=== PATIENT | male | born 1970 | race Caucasian/White ===

== ENCOUNTER 2017-03-13 17:08 | Inpatient (IN) | payer MEDICAID, OTHER ==
[~2017-03-13] VITALS: Ht 180.3 cm; Wt 108.4 kg
[2017-03-13 17:21] VITALS: BP 170/112
--- NOTE | 2017-03-13 17:26 | NUR ---
PT AMBULATED TO BED 7 AT THIS TIME.
--- NOTE | 2017-03-13 17:30 | NUR ---
46M BIB SELF C/O SUICIDAL IDEATION; PT STATES " I'V BEEN HAVING THOUGHTS OF SUICIDE FOR SOME TIME NOW. I'VE LOST EVERYTHING"; PT DENIES IDEAS OF HURTING SELF AT THIS TIME. PT A&OX4, PERRL; STATES " I WANT TO GO TO ANOTHER COUNTRY WHERE THEY WILL LET ME KILL MYSELF, LIKE [place]. I FEEL LIKE I HAVE THE RIGHT TO KILL MYSELF IN THE COUN[place] I RESIDE IN"; BL LUNG SOUNDS, RR EVEN/UNLABORED, SKIN IS WARM/DRY AT THIS TIME; PT NOTED W/ CLOSED, RED SCRATCH ANTONIO TO LEFT FOOT; STATES " MY FOOT IS IN THERE ALL DAY, IT GETS MOIST, SO I SCRATCHED IT"; [place] [employer] CALLED; PT DENIES ANY PAIN, N/V/D AT THIS TIME; STEADY GAIT; PT PLACED ON MONITOR, RESTING IN BED W/ HOB ELEVATED AND IN LOWEST POSITION; POSITIONED FOR COMFORT; ER MD MADE AWARE OF STATUS. WILL CONTINUE TO MONITOR.
--- NOTE | 2017-03-13 17:41 | NUR ---
ER MD DR. SUAREZ EVALUATING PT AT BEDSIDE.
--- NOTE | 2017-03-13 18:05 | NUR ---
NO IV INSERTION NEEDED AT THIS TIME PER ER MD DR. SUAREZ.
--- NOTE | 2017-03-13 18:06 | NUR ---
PT REFUSES OXYGEN; STATES " I'M BREATHING FINE"; O2 SAT 97% ON ROOM AIR AT THIS TIME.
[2017-03-13 18:09] LABS: BASOPHILS # (AUTO) 0.1 K/uL (0.00-0.22); BASOPHILS % (AUTO) 1.2 % (0.0-2.0); EOSINOPHILS # (AUTO) 0.1 K/uL (0-0.4); EOSINOPHILS % (AUTO) 1.2 % (0.0-4.0); HEMOGLOBIN 15.3 g/dL (12.0-18.0); LYMPHOCYTES # (AUTO) 2.6 K/uL (2.0-11.5); LYMPHOCYTES % (AUTO) 20.7 % (20.5-51.1); MEAN CORPUSCULAR HEMOGLOBIN 27 pg (27-31); MEAN CORPUSCULAR HGB CONC 33 g/dL (33-37); MEAN CORPUSCULAR VOLUME 84 fL (80-94); NEUTROPHILS # (AUTO) 8.6 K/uL (1.8-7.7); NEUTROPHILS % (AUTO) 68.9 % (42.2-75.2); PLATELET COUNT (AUTO) 315 K/uL (140-450); RED BLOOD CELL COUNT(AUTO) 5.61 MIL/uL (4.20-6.10); WHITE BLOOD COUNT (AUTO) 12.4 K/uL (4.8-10.8)
--- NOTE | 2017-03-13 18:14 | NUR ---
[place] [employer] EVALUATING PT AT BEDSIDE AT THIS TIME.
[2017-03-13 18:19] LABS: ANION GAP 12.2 (8-16); CARBON DIOXIDE 27.7 mmol/L (21-32); CHLORIDE 107 mmol/L (98-107); CREATININE 1.2 mg/dL (0.6-1.3); GFR ARICAN-AMERICAN 83 mL/min (>90); GFR NON ARICAN-AMERICAN 69 mL/min (>90); GLUCOSE 118 mg/dL (74-106); POTASSIUM 3.9 mmol/L (3.5-5.1); SODIUM SERUM 143 mmol/L (136-145); UREA NITROGEN, BLOOD 16 mg/dL (7-18)
[2017-03-13 18:25] LABS: ALANINE AMINOTRANSFERASE 44 U/L (12-78); ALBUMIN 3.9 g/dL (3.4-5.0); ALCOHOL, BLOOD < 3 mg/dL (<3); ALKALINE PHOSPHATASE 85 U/L (46-116); ASPARTATE AMINOTRANSFERASE 25 U/L (15-37); CREATINE KINASE, TOTAL 389 U/L (39-308); SALICYLATE 3.2 mg/dL (2.8-20.0); TOTAL BILIRUBIN 0.2 mg/dL (0.0-1.0); TOTAL PROTEIN, SERUM 7.3 g/dL (6.4-8.2)
[2017-03-13 18:26] LABS: ACETAMINOPHEN < 0.5 ug/ml (10-30)
--- NOTE | 2017-03-13 18:46 | NUR ---
PT PLACED ON 5150 HOLD FOR SUICIDAL IDEATION BY KINSEY HAMLIN; SUICIDAL PRECAUTIONS INITIATED AT THIS TIME.
--- NOTE | 2017-03-13 19:08 | NUR ---
Pt report given to NIKOLE CHAN. Transfer of care at this time.
--- NOTE | 2017-03-13 19:10 | NUR ---
RECEIVED REPORT FROM MILADY AGUSTIN. ASSUMED PT CARE.
[2017-03-13 21:43] LABS: APPEARANCE,URINE CLEAR (CLEAR); BILIRUBIN,URINE NEGATIVE (NEGATIVE); BLOOD, URINE NEGATIVE (NEGATIVE); COLOR,URINE YELLOW (YELLOW); LEUKOCYTE ESTERASE ,URINE NEGATIVE (NEGATIVE); NITRITE, URINE NEGATIVE (NEGATIVE); PH,URINE 5.5 (5.0-9.0); PROTEIN,URINE NEGATIVE (NEGATIVE); UGLUCOSE NEGATIVE (NEGATIVE); UROBILINOGEN,URINE 0.2 EU/dL (0.2 - 1)
[2017-03-13 21:47] LABS: RBC,URINE 0-3 /HPF (0-5); WBC,URINE 0-3 /HPF (0-5)
[2017-03-13 21:48] LABS: BACTERIA,URINE RARE /HPF (None Seen); MUCUS,URINE 3+ /LPF (None Seen); SQUAMOUS EPITHELIAL CELL,UR None Seen /LPF (0-3 (FEW))
[2017-03-13 21:50] LABS: AMPHETAMINE, URINE NEG. ng/ml (NEG <=1000); BARBITURATE, URINE NEG. ng/ml (NEG <=200); BENZODIAZEPINE, URINE NEG. ng/mL (NEG <=200); CANNABINOID, URINE POS. ng/mL (NEG <=50); COCAINE, URINE NEG. ng/mL (NEG <=300); OPIATE, URINE NEG. ng/mL (NEG <=2000); PHENCYCLIDINE SCREEN,URINE NEG. ng/mL (NEG <=25)
[2017-03-13] MEDS ORDERED: MORPHINE SULFATE 2 MG/ML SYR IVP PRN (22:25)
[2017-03-13] MEDS ORDERED: ZOLPIDEM 5 MG TAB PO PRN (22:25)
[2017-03-13] MEDS ORDERED: ONDANSETRON 4 MG/2 ML VIAL IVP PRN (22:25)
--- NOTE | 2017-03-13 22:58 | NUR ---
Patient will be admitted to care of DR JIANG. Admited to ICU. Will go to BED 2. Belongings list completed. Report to EUGENIA AGUSTIN.
--- NOTE | 2017-03-13 23:05 | NUR ---
PATIENT ADMITTED FROM ED FOR 5150 SUICIDAL IDEATION, PLACED TO ICU2, MONITOR SHOWS SR, ON ROOM AIR, RESPIRATIONS NORMAL, SKIN INTACT, IV SITE LEFT HAND G#20 PATENT AND INTACT. PATIENT STILL VERBALIZING SUICIDAL IDEATION, STATED "I WANT TO , MY LIFE IS HORRIBLE, I WANT [place]". DENIES PAIN, NO DISTRESS NOTED.
[2017-03-13 23:12] VITALS: BP 135/83
--- NOTE | 2017-03-13 23:30 | NUR ---
PT IS ASKING WHERE HIS CLOTHS, CALLED ER TALK WITH ARMINDA VAZQUEZ , SHE TOLD CLOTHS WITH SECURITY, CALLED SECURITY HE TOLD NO CLOTHS ONLY PEN, NAIL CUTTING, CALLED BACK TO ER TALK WITH CHARGE NURSE HILARY , HE TOLD HE WILL LOOKING
[2017-03-13] MEDS: NACL 0.9% 1,000 ML IV SCH (23:41)
[2017-03-14] VITALS: BP 125/76
--- NOTE | 2017-03-14 00:20 | NUR ---
CALLED BACK TO ER AGAIN, ARMINDA SHE TOLD SHE DID NOT KNOW WHERE PT CLOTHS, SHE CALLED SECURITY FOR LOOKING FOR PT CLOTHS TOO
[2017-03-14 00:28] LABS: INR 1.1 (0.8-1.2); PARTIAL THROMBOPLASTIN TIME 25.4 secs (22-35.6); PROTHROMBIN TIME 10.5 secs (10.8-13.4)
--- NOTE | 2017-03-14 00:35 | NUR ---
PATIENT ABLE TO TURN SELF IN BED, HAD SOME SNACKS AND GETTING READY TO GO TO SLEEP, DENIES PAIN, WILL MONITOR CLOSELY.
[2017-03-14 02:26] LABS: AMYLASE 74 U/L (25-115); LIPASE 289 U/L (73-393)
[2017-03-14 02:38] LABS: FREE T4 (FREE THYROXINE) 1.64 ng/dL (0.76-1.46)
[2017-03-14 02:39] LABS: THYROID STIMULATING HORMONE 1.86 uIU/mL (0.34-3.76)
--- NOTE | 2017-03-14 03:37 | NUR ---
SLEEPING COMFORTABLY, CONTINUE TO MONITOR CLOSELY.
[2017-03-14 04:00] VITALS: BP 122/71
--- NOTE | 2017-03-14 04:05 | NUR ---
SECURITY BROUGHT IN PATIENT'S CLOTHINGS AND BACKPACK TO ICU FROM ED.
[2017-03-14] MEDS: HYDROcodone/APAP 5/325 MG 1 TAB TAB PO PRN ×3 (04:40→18:41)
--- NOTE | 2017-03-14 04:52 | NUR ---
NORCO 1 TAB PO GIVEN FOR COMPLAIN OF TOOTHACHE AT 0440. NO VERBALIZATION OF SUICIDAL IDEATION, PATIENT WENT BACK TO SLEEP.
--- NOTE | 2017-03-14 06:20 | NUR ---
PATIENT SLEEPING COMFORTABLY, NO ACUTE DISTRESS.
[2017-03-14 06:25] LABS: BASOPHILS # (AUTO) 0.1 K/uL (0.00-0.22); BASOPHILS % (AUTO) 0.8 % (0.0-2.0); EOSINOPHILS # (AUTO) 0.3 K/uL (0-0.4); EOSINOPHILS % (AUTO) 3.6 % (0.0-4.0); HEMATOCRIT 41.6 % (36-52); LYMPHOCYTES # (AUTO) 2.9 K/uL (2.0-11.5); MEAN CORPUSCULAR HEMOGLOBIN 28 pg (27-31); MEAN CORPUSCULAR HGB CONC 34 g/dL (33-37); MEAN CORPUSCULAR VOLUME 84 fL (80-94); MONOCYTES % (AUTO) 10.6 % (1.7-9.3); NEUTROPHILS # (AUTO) 4.7 K/uL (1.8-7.7); PLATELET COUNT (AUTO) 232 K/uL (140-450); RED BLOOD CELL COUNT(AUTO) 4.94 MIL/uL (4.20-6.10); RED CELL DISTRIBUTION WIDTH 13.2 % (11.6-13.7)
[2017-03-14 06:28] LABS: CALCIUM 8.5 mg/dL (8.5-10.1); CARBON DIOXIDE 31.2 mmol/L (21-32); POTASSIUM 4.2 mmol/L (3.5-5.1)
[2017-03-14 06:31] LABS: MAGNESIUM 1.9 mg/dL (1.8-2.4); PHOSPHORUS 3.4 mg/dL (2.5-4.9)
[2017-03-14] MEDS: NACL 0.9% 1,000 ML IV SCH (06:48)
--- NOTE | 2017-03-14 07:30 | NUR ---
RECEIVED REPORT FROM EUGENIA AGUSTIN PT AWAKE AND ALERT WELL ORIENTED , ON ROOM AIR IV FLUID ON LEFT HAND #20 infusing ns at 120ml/hr the site is dry and intact skin DRY WARM TO TOUCH . PT IS CALM AND COOPERATE AT THE TIME DENIED PAIN.
--- NOTE | 2017-03-14 07:53 | NUR ---
PATIENT HAS BEEN SCREENED AND CATEGORIZED LOW NUTRITION RISK. PATIENT WILL BE SEEN WITHIN 7 DAYS OF ADMISSION. 03/20/[address]
[2017-03-14 08:00] VITALS: BP 132/76
--- NOTE | 2017-03-14 08:15 | NUR ---
SEEN BY DR GUILLORY AND THE RESIDENT BY COVERSATION PT. STATE THAT HE WANTED TO KENA BY INJECT HEROINE INTO IV.AND PAST AWAY QUIETLY,. HE LIKE IT TO HAPPEN IN HOSPITAL BECAUSE IT CLEAN. HE ALSO MENTION THAT HE STILL VERY MUSH DEPRESS AT THE TIME.
--- NOTE | 2017-03-14 11:00 | NUR ---
OOB TO BED SIDE COMMODE VOIDED 600 ML AND HAD MODERATE AMOUNT OF FORM BM.
--- NOTE | 2017-03-14 11:27 | NUR ---
SS NOTE: PER NURSING CLERK ERICK, ALTHOUGH PT HAS DENITA[facility]OPTIMA, PT'S MEDI-DENITA IS THROUGH [facility]. SENT PSYCH PLACEMENT INQUIRIES TO: - [facility] - [facility] - [facility] - [facility]
[2017-03-14 12:00] VITALS: BP 123/71
--- NOTE | 2017-03-14 12:00 | NUR ---
LUNCH TOOK ABOUT 80% FROM HIS DEYANIRA. COOPERATIVE DENIED PAIN.
--- NOTE | 2017-03-14 12:12 | NUR ---
NOTE INITIAL REVIEW FAXED TO [facility] / FAX# [phone] Addendum: 03/14/17 at 1216 by Dane Gatica RN ATTN: STANLEY #[phone], [facility] FAX# [phone]
[2017-03-14] MEDS ORDERED: PROBIOTIC SCREEN 1 EA MISC MC PRN (13:35)
--- NOTE | 2017-03-14 14:05 | NUR ---
C/O TOOTH ACH 10/10 MEDICATION GIVEN ORDERED.
--- NOTE | 2017-03-14 15:00 | NUR ---
PT ASLEEP V/S WITH IN NORMAL LIMIT.
--- NOTE | 2017-03-14 15:52 | NUR ---
SEEN BY DR. ULLOA THE PSYCHOLOGIST PT. STILL MEET 5150 DUE TO SUICIDAL AND HOMICIDAL IDEATION WILL NEED TO TRANSFER TO PSYCHIATRIC FACILITY. DR DASILVA NOTIFIED.
[2017-03-14 16:00] VITALS: BP 123/70
--- NOTE | 2017-03-14 18:00 | NUR ---
DINNER TOOK 85% C/ TOOTHACHES
--- NOTE | 2017-03-14 19:00 | NUR ---
CALL TELE REPORT GIVE TO [employer]
--- NOTE | 2017-03-14 19:28 | NUR ---
RECEIVED TRANSFER PATIENT FROM ICU AT 1920 PM VIA WHEELCHAIR TO MED/SURG UNIT. INITIAL ASSESSMENT AND BODY CHECK DONE. PATIENT AAO X 4, ABLE TO FOLLOW COMMAND AND MAKE NEEDS KNOWN AND AMBULATORY BY SELF WITH STEADY GAIT. NO S/S OF DISTRESS OR SOB NOTED UPON TRANSFERRING. SKIN WARM/DRY TO TOUCH WITH NORMAL COLOR AND SKIN ALL INTACT. PATIENT STILL C/O TOOTHACHE AT THIS TIME AND ASKED FOR FOOD/SNACKS. INSTRUCTED PATIENT TO ROOM/ENVIRONMENT. ALSO, DISCUSSED PLAN OF CARE, PAIN MANAGEMENT AND MEDICATION REGIMEN WITH PATIENT AND PATIENT VERBALIZED UNDERSTANDING. PLACED PATIENT ON SAFETY/SUICIDAL IDEATION PRECAUTIONS. WILL CONTINUE 1:1 SITTER WITH CLOSE OBSERVATION.
[2017-03-14 20:00] VITALS: BP 119/62
--- NOTE | 2017-03-14 21:26 | NUR ---
ADMINISTERED PAIN MEDICATION FOR C/O TOOTHACHE AND GAVE ONE PAIR OF SANDWICH/JUICE PER REQUESTED. PATIENT COMPLYING WITH MEDICATION AND CARE. BEHAVIOR UNDER CONTROL. VSS. KEPT PATIENT IN COMFORTABLE POSITION/WARM AND WILL CONTINUE TO MONITOR. SITTER REMAINS AT BEDSIDE.
[2017-03-15] VITALS: BP 114/61
--- NOTE | 2017-03-15 01:30 | NUR ---
PATIENT CURRENTLY SLEEPING QUIETLY IN BED WITH EVEN AND UNLABORED RESPIRATORY RATE. NO BEHAVIOR PROBLEM NOTED. WILL CONTINUE TO MONITOR AND SITTER AT BEDSIDE.
[2017-03-15] MEDS: NACL 0.9% 1,000 ML IV SCH (03:38)
--- NOTE | 2017-03-15 04:09 | NUR ---
PATIENT IS CLINICALLY STABLE AND NO S/S OF DISTRESS NOTED. WILL CONTINUE TO MONITOR. SITTER REMAINS AT BEDSIDE.
--- NOTE | 2017-03-15 07:25 | NUR ---
PATIENT RESTED WELL THROUGHOUT THE SHIFT AND REMAINED IN STABLE CONDITION WITHOUT APPARENT DISTRESS NOTED. ENDORSED PLAN OF CARE TO NIKOLE LY, AT BEDSIDE. SITTER REMAINS AT BEDSIDE.
--- NOTE | 2017-03-15 07:30 | NUR ---
RECEIVED REPORT FROM NIGHT NURSE. PT RESTING COMFORTABLY IN BED. AOX4, ABLE TO VERBALIZE NEEDS. IV SITE ASYMPTOMATIC, PATENT AND INTACT. REVIEWED AND DISCUSSED PLAN OF CARE WITH PT, PT VERBALIZES UNDERSTANDING. NO S/S OF ACUTE DISTRESS. PT VERBALIZES SUICIDAL IDEATION WITH A PLAN, STATES THAT "I JUMP OUT OF THE TRAIN'S WAY AT THE LAST MINUTE." 1:1 SITTER AT BEDSIDE WITH CLOSE MONITORING, SUICIDE PRECAUTIONS AND SAFETY MEASURES ENSURED. CALL LIGHT WITHIN REACH.
[2017-03-15 08:00] VITALS: BP 134/58
[2017-03-15 08:20] LABS: T4 (THYROXINE) 7.7 ug/dL (4.5-12.0)
--- NOTE | 2017-03-15 08:34 | NUR ---
SS NOTE: SENT PSYCH PLACEMENT INQUIRIES TO: - [facility] - [facility] - [facility] - [facility]
--- NOTE | 2017-03-15 10:00 | NUR ---
PT SMOKING CIGARETTES IN BATHROOM. SECURITY NOTIFIED. BELONGINGS CHECKED, SECURITY CONFISCATED PERSONAL BELONGINGS. PT SHOWERED AND RETURNED SAFELY TO ROOM. 1:1 SITTER WITH CLOSE MONITORING AT BEDSIDE. SAFETY MEASURES ENSURED.
[2017-03-15] MEDS: HYDROcodone/APAP 5/325 MG 1 TAB TAB PO PRN ×3 (11:17→21:59)
--- NOTE | 2017-03-15 11:17 | NUR ---
PT C/O PAIN. SEE PAIN ASSESSMENT. MEDICATED ORDERED. PT TOLERATED WELL. EDUCATED PT TO REPOSITION AND WATCH TV FOR DISTRACTION. 1:1 SITTER AT BEDSIDE WITH CLOSE MONITORING. SUICIDE PRECAUTIONS AND SAFETY MEASURES ENSURED. CALL LIGHT WITHIN REACH. WILL CONTINUE TO MONITOR.
--- NOTE | 2017-03-15 13:27 | NUR ---
FAXED CONCURRENT REVIEW TO [facility]ITA [facility]K [phone] PHONE MELINDA [phone] TRACKING NUMBER [id number]
--- NOTE | 2017-03-15 14:21 | NUR ---
CM NOTE: PSYCH PLACEMENT FOLLOW UP: PER GUS FROM [facility] (TEL NO. [phone]), THEY WILL ACCEPT PT BUT STILL WAITING FOR AVAILABLE BED. SHE SAID THEY WILL HAVE A DISCHARGE THIS AFTERNOON AND SHE WILL JUST CALL US WHEN THERE'S AVAILABLE BED. PER SOFIE [facility], THEY STILL NEED TO REVIEW PT'S NFO. PER MARTIN FROM [facility], THEY CAN'T ACCEPT THE PATIENT FOR NOW. PER KEVIN FROM [facility], NO BEDS AVAILABLE. PER PAM FROM [facility], NO BEDS AVAILABLE.
[2017-03-15] MEDS ORDERED: ESCI10TA PO (15:50)
[2017-03-15 16:00] VITALS: BP 118/78
--- NOTE | 2017-03-15 19:30 | NUR ---
CONDITION STABLE, ENDORSED PLAN OF CARE TO AUTOMOBILE TAILLIGHT ASSEMBLER.
--- NOTE | 2017-03-15 19:30 | NUR ---
RECEIVED REPORT FROM MOON AGUSTIN AT BEDSIDE. PT IS ALERT AWAKE ORIENTED X4. INITIAL ASSESSMENT DONE. NO S/S OF RESPIRATORY DISTRESS OR SOB NOTED. NO C/O PAIN OR ANY DISCOMFORT AT THIS TIME. PT IS ON 1:1 CLOSED MONITORING D/T SUICIDAL IDEATION. PT STATES THAT HE HAS NO LONGER PLAN TO HURT HIMSELF AT THIS TIME. READY TO BE TRANSFERRED TO [facility] [place] BUT STILL WAITING FOR THEM TO CALL US BACK FOR AVAILABLE BED. PLAN OF CARE REVIEWED TO PT AND VERBALIZED UNDERSTANDING. CALL LIGHT WITHIN REACH. WILL CONTINUE TO MONITOR
--- NOTE | 2017-03-15 19:30 | NUR ---
AM SHIFT NURSE ALIYAH RN SAID THAT PT HAS NO IV ACCESS BECAUSE HE IS REFUSING IT DESPITE OF EXPLAINING THE RISKS AND BENEFITS OF IT. DR. JIANG MADE AWARE. WILL CONTINUE TO MONITOR.
--- NOTE | 2017-03-15 21:50 | NUR ---
KINSEY HAMLIN CAME BECAUSE PT CALLED THEM AND SAID THAT HE WANTS TO TALK TO A TRACK WATCHMAN. KINSEY HAMLIN TOLD ME THAT PT TOLD THEM THAT HE SO DEPRESSED RIGHT NOW AND HAS PLAN TO HURT HIMSELF. WILL CONTINUE TO MONITOR. STILL ON 1:1 CLOSED MONITORING.
[2017-03-16] VITALS: BP 124/75
--- NOTE | 2017-03-16 00:10 | NUR ---
PT IS SLEEPING RIGHT NOW BUT EASILY AROUSABLE. NO S/S OF ANY DISCOMFORT AT THIS TIME. ALL NEEDS ARE ATTENDED. CALL LIGHT WITHIN REACH. WILL CONTINUE TO MONITOR.
[2017-03-16] MEDS: NACL 0.9% 1,000 ML IV SCH (04:24)
--- NOTE | 2017-03-16 05:15 | NUR ---
AM CARE RENDERED. BED LINEN CHANGED. INSTRUCTED PT TO REPOSITION. KEPT CLEAN AND DRY. CALL LIGHT WITHIN REACH. WILL CONTINUE TO MONITOR.
--- NOTE | 2017-03-16 07:22 | NUR ---
PT HAS NO S/S OF ANY DISCOMFORT. PLAN OF CARE ENDORSE TO ALIYAH AGUSTIN & MOON AGUSTIN AT BEDSIDE FOR CONTINUITY OF CARE.
--- NOTE | 2017-03-16 07:30 | NUR ---
RECEIVED REPORT FROM NIGHT NURSE. PT RESTING COMFORTABLY IN BED. AOX4, ABLE TO VERBALIZE NEEDS. PT REFUSED IV SITE. REVIEWED AND DISCUSSED PLAN OF CARE WITH PT, PT VERBALIZES UNDERSTANDING. NO S/S OF ACUTE DISTRESS. PT VERBALIZES SUICIDAL IDEATION WITH A PLAN. FLIGHT OF IDEAS NOTED. 1:1 SITTER AT BEDSIDE WITH CLOSE MONITORING, SUICIDE PRECAUTIONS AND SAFETY MEASURES ENSURED. CALL LIGHT WITHIN REACH.
[2017-03-16 08:00] VITALS: BP 120/72
[2017-03-16] MEDS ORDERED: ESCITALOPRAM 20 MG TAB PO SCH (09:00)
--- NOTE | 2017-03-16 09:20 | NUR ---
MEDICATIONS ADMINISTERED WITH EDUCATION. PT VERBALIZES UNDERSTANDING. PT TOLERATED WELL. 1:1 SITTER WITH CLOSE OBSERVATION MAINTAINED. SAFETY AND SUICIDE PRECAUTIONS ENSURED. WILL CONTINUE TO MONITOR.
[2017-03-16] MEDS ORDERED: NICOTINE TRANSD SYS 14 MG/24 HR PATCH TD PRN (11:05)
--- NOTE | 2017-03-16 14:31 | NUR ---
CALLED [facility] PER DANIEL THERE IS NO BED AVAILABLE .THEY WILL CALL WHEN BED AVAILABLE
--- NOTE | 2017-03-16 14:48 | NUR ---
RECEIVED CALL FROM [facility] ,THERE IS BED AVAILABLE , PATIENT CAN GO TO [place] UNIT [address] IS [address] BEATTY TO GIVE REPORT [phone]
--- NOTE | 2017-03-16 15:00 | NUR ---
SPOKE WITH KELSEY FROM [facility], ARRANGED TRANSPORTATION TO [facility], ALARM SIGNALER TIME 1630. GUN STOCKER AND ALIYAH RN MADE AWARE.
[2017-03-16 15:16] VITALS: BP 120/72
[2017-03-16 16:00] VITALS: BP 115/64
--- NOTE | 2017-03-16 18:00 | NUR ---
PT REEVALUATED BY DR VALVERDE, 5150 HOLD RENEWED. [facility] TRANSPORTATION ARRANGED FOR KITCHEN WORK SUPERVISOR. PT REMAINS STABLE.
--- NOTE | 2017-03-16 19:20 | NUR ---
DC'D PT TO [facility] VIA [facility] IN STABLE CONDITION.
== END 2017-03-16 19:15 | disposition designated cancer center or children's hospital (05) | DRG 199 ==
LOC: MED 17:08 → MIC 22:21 → MTU 03-14 19:06
PROVIDERS: ADMIT Family Medicine; ATTEND Family Medicine
DX: I16.0 Hypertensive urgency (principal); R45.851 Suicidal ideations; F33.2 Major depressive disorder, recurrent severe without psychotic features; R45.850 Homicidal ideations; E66.9 Obesity, unspecified; F12.90 Cannabis use, unspecified, uncomplicated; F17.210 Nicotine dependence, cigarettes, uncomplicated; F41.0 Panic disorder [episodic paroxysmal anxiety]; Z68.33 Body mass index [BMI] 33.0-33.9, adult; Z59.0 Homelessness; Z71.51 Drug abuse counseling and surveillance of drug abuser
CPT/HCPCS: 36415; 71010; 80048; 80053; 80305; 81001; 82150; 82550; 82553; 83036; 83690; 83735; 84100; 84436; 84439; 84443; 84479; 84484; 85025; 85610; 85730; 87081; 93005; 99285; G0480; G0482; J2270; J7030; Q0092

== ENCOUNTER 2017-10-20 11:26 | Inpatient (IN) | payer MEDICAID, OTHER ==
[~2017-10-20] VITALS: Ht 177.8 cm; Wt 99.8 kg
[~2017-10-20 11:26] MED LIST: ESCI10TA PO
[2017-10-20 11:28] VITALS: BP 154/96
--- NOTE | 2017-10-20 11:32 | NUR ---
Patient ambulated to bed 6. RN evaluating patient at bedside.
--- NOTE | 2017-10-20 11:33 | NUR ---
PT PRESENTS TO ER FOR EVALUATION OF SUICIDAL IDEATION. PT STATES HE WANTS TO HURT HIMSELF AND OTHER, DENIES HAVING A PLAN. HX DEPRESSION. DENIES N/V/D; SKIN IS PINK/WARM/DRY; AAOX4 WITH EVEN AND STEADY GAIT; LUNGS CLEAR BL; PATIENT STATES PAIN OF 0/10 AT THIS TIME; PATIENT POSITIONED FOR COMFORT; HOB ELEVATED; BEDRAILS UP X2; BED DOWN. ER MD MADE AWARE OF PT STATUS.
--- NOTE | 2017-10-20 11:36 | NUR ---
KINSEY Peña NOTIFIED OF PT STATUS AND WILL SEND OFFICER TO INTERVIEW PT.
--- NOTE | 2017-10-20 12:06 | NUR ---
Dr. Matos evaluating patient at bedside.
[2017-10-20 12:49] LABS: BASOPHILS # (AUTO) 0.2 K/uL (0.00-0.22); BASOPHILS % (AUTO) 2.7 % (0.0-2.0); EOSINOPHILS # (AUTO) 0.1 K/uL (0-0.4); EOSINOPHILS % (AUTO) 1.1 % (0.0-4.0); HEMATOCRIT 45.4 % (36-52); LYMPHOCYTES # (AUTO) 1.9 K/uL (2.0-11.5); LYMPHOCYTES % (AUTO) 21.3 % (20.5-51.1); MEAN CORPUSCULAR HEMOGLOBIN 28 pg (27-31); MEAN CORPUSCULAR HGB CONC 33 g/dL (33-37); MEAN CORPUSCULAR VOLUME 86 fL (80-94); MONOCYTES # (AUTO) 0.7 K/uL (0.8-1.0); MONOCYTES % (AUTO) 7.7 % (1.7-9.3); NEUTROPHILS # (AUTO) 6.2 K/uL (1.8-7.7); NEUTROPHILS % (AUTO) 67.2 % (42.2-75.2); PLATELET COUNT (AUTO) 266 K/uL (140-450); RED BLOOD CELL COUNT(AUTO) 5.28 MIL/uL (4.20-6.10); RED CELL DISTRIBUTION WIDTH 12.9 % (11.6-13.7); WHITE BLOOD COUNT (AUTO) 9.1 K/uL (4.8-10.8)
--- NOTE | 2017-10-20 13:11 | NUR ---
KINSEY Peña AT BEDSIDE.
[2017-10-20 13:14] LABS: ANION GAP 10.3 (8-16); CARBON DIOXIDE 31.8 mmol/L (21-32); CHLORIDE 105 mmol/L (98-107); CREATININE 1.1 mg/dL (0.7-1.3); GFR ARICAN-AMERICAN 92 mL/min (>90); GLUCOSE 126 mg/dL (74-106); POTASSIUM 4.1 mmol/L (3.5-5.1); SODIUM SERUM 143 mmol/L (136-145); UREA NITROGEN, BLOOD 12 mg/dL (7-18)
[2017-10-20 13:20] LABS: ALBUMIN 3.6 g/dL (3.4-5.0); ASPARTATE AMINOTRANSFERASE 20 U/L (15-37); SALICYLATE 4.3 mg/dL (2.8-20.0); TOTAL BILIRUBIN 0.3 mg/dL (0.0-1.0)
[2017-10-20 13:25] LABS: ACETAMINOPHEN < 0.5 ug/ml (10-30)
[2017-10-20 13:37] LABS: APPEARANCE,URINE CLEAR (CLEAR); BILIRUBIN,URINE NEGATIVE (NEGATIVE); BLOOD, URINE NEGATIVE (NEGATIVE); LEUKOCYTE ESTERASE ,URINE NEGATIVE (NEGATIVE); NITRITE, URINE NEGATIVE (NEGATIVE); UGLUCOSE NEGATIVE (NEGATIVE)
--- NOTE | 2017-10-20 13:42 | NUR ---
Patient appears to be resting comfortably in bed. BP 138/78,DENIES HEADACHE OR DIZZINESS AT THIS TIMR. Respirations even and unlabored.WILL CONTINUE TO MONITOR. Addendum: 10/20/17 at 1504 by [facility] PT STATED " I DON'T WANT TO HURT MYSELF OR ANYONE NOW. I WANT TO KNOW WHERE WILL YOU TRANSFER ME ".
[2017-10-20 13:48] LABS: BARBITURATE, URINE NEG. ng/ml (NEG <=200); BENZODIAZEPINE, URINE NEG. ng/mL (NEG <=200); CANNABINOID, URINE NEG. ng/mL (NEG <=50); COCAINE, URINE NEG. ng/mL (NEG <=300); OPIATE, URINE NEG. ng/mL (NEG <=2000); PHENCYCLIDINE SCREEN,URINE NEG. ng/mL (NEG <=25)
[2017-10-20 13:50] LABS: COLOR,URINE YELLOW (YELLOW)
[2017-10-20] MEDS ORDERED: LIDOCAINE 2% 1000 MG/50 ML VIAL INJ ONE (15:00)
--- NOTE | 2017-10-20 15:00 | NUR ---
PT ATE 50% OF FOOD .
[2017-10-20] MEDS ORDERED: ONDANSETRON 4 MG/2 ML VIAL IVP PRN (16:20)
[2017-10-20] MEDS ORDERED: ACETAMINOPHEN 325 MG TAB PO PRN (16:20)
--- NOTE | 2017-10-20 16:49 | NUR ---
Dr. Andrea evaluating patient at bedside.
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
--- NOTE | 2017-10-20 17:02 | NUR ---
GAVE REPORT NIKOLE HODGES.Patient will be admitted to care of DR MARSH. Admited to . Will go to room 124B. Belongings list completed. Report to NIKOLE SHANNON.
[2017-10-20] MEDS ORDERED: NICOTINE TRANSD SYS 21 MG/24 HR PATCH TD SCH (17:10)
[2017-10-20] MEDS ORDERED: ESCITALOPRAM 20 MG TAB PO SCH (17:10)
--- NOTE | 2017-10-20 17:10 | NUR ---
RECEIVED PT FROM ER ASSISTED BY ER NURSE. AWAKE. ALERT ORIENTEDX4. NO SOB NOTED. DENIES ANY PAIN OR DISCOMFORT AT THIS TIME. NO PLANS FOR SUICIDAL NOTED AT THIS TIME. PT AMBULATORY. SAFETY PRECAUTION IN PLACE. MAINTAINED ON , ONE ON ONE SITTER. SAFETY PRECAUTION IN PLACE. CALL LIGHT WITHIN REACH.
[2017-10-20 17:11] LABS: CHOL/HDL RATIO 5.9 (1-4.5); FREE T4 (FREE THYROXINE) 1.39 ng/dL (0.76-1.46); PHOSPHORUS 2.3 mg/dL (2.5-4.9); THYROID STIMULATING HORMONE 1.22 uIU/mL (0.34-3.74)
[2017-10-20 17:15] LABS: PROTHROMBIN TIME 9.9 secs (10.8-13.4)
[2017-10-20 17:24] VITALS: BP 127/72
[2017-10-20] MEDS: NACL 0.9% 1,000 ML IV SCH (18:12)
--- NOTE | 2017-10-20 18:12 | NUR ---
LEXAPRO 10 MG PER 1/2 TAB AND NICOTINE PATCH SCHEDULED AT 1710 ORDERED UPON ADMISSION TO [facility] WAS GIVEN 1811. USED DOSE SCHEDULED FOR TOMORROW AM IN [place]. WILL ENDORSE TO LINER ROLL CHANGER TO LET AM SHIFT KNOW.
--- NOTE | 2017-10-20 18:26 | NUR ---
PT VERBALIZED HE STILL THINKS OF KILLING HIMSELF BUT WITH NO PLAN. HE VERBALIZED THAT HE WANTED TO BE EUTHANIZED TO JUST END ALL OF HIS PROBLEMS. HE VERBALIZED HE HAS FAMILY IN [place] BUT DOESN'T WANT TO CONTACT THEM. PT MAINTAINED ON . MAINTAINED ON SAFETY PRECAUTION.
--- NOTE | 2017-10-20 19:23 | NUR ---
PT KEPT CLEAN, DRY AND COMFORTABLE, NEEDS ATTENDED. ENDORSED TO NEXT SHIFT, PT ON STABLE CONDITION. FOR CONTINUITY OF CARE.
--- NOTE | 2017-10-20 19:25 | NUR ---
RECD. RESTING IN BED, AWAKE, A/OX4. RESPIRATION EVEN AND UNLABORED. IV OF NS AT 50 ML/HR INFUSING, RIGHT AC G20. DR. QUINTANA HAD INTERVIEWED PATIENT. STATED STILL WITH THOUGHTS OF HARMING SELF. PLAN OF CARE FOR THE SHIFT DISCUSSED. VERBALIZED UNDERSTANDING. DENIES PAIN 0/10. ASSUMED ROLE OF 1:1 SITTER, WILL CONTINUE TO MONITOR PATIENT AND ENSURE SAFETY.
--- NOTE | 2017-10-20 19:40 | NUR ---
DR. NIELSEN RECOMMEND PATIENT TO BE DISCHARGED ONCE MEDICALLY CLEARED TO IN-PSYCHE FACILITY.
--- NOTE | 2017-10-20 19:49 | NUR ---
Patient's Plan of Care was discussed and reviewed with SALES REPRESENTATIVE GIRLS' APPAREL: ONEL.
[2017-10-20 20:00] VITALS: BP 117/68
--- NOTE | 2017-10-20 20:30 | NUR ---
WENT TO BR TO VOID, BACK TO BED AFTER VOIDING, SAFETY MAINTAINED.
[2017-10-20] MEDS: DOCUSATE SODIUM 100 MG GELCAP PO SCH (20:45)
--- NOTE | 2017-10-20 20:45 | NUR ---
SLEEPING COMFORTABLY IN BED.
[2017-10-20] MEDS: risperiDONE 1 MG TAB PO SCH (20:46)
[2017-10-21] VITALS: BP 119/70
--- NOTE | 2017-10-21 | NUR ---
STILL SLEEPING COMFORTABLY, SNORING.
--- NOTE | 2017-10-21 01:15 | NUR ---
WOKE UP FOR A SHORT TIME AND WENT BACK TO SLEEP AGAIN.
--- NOTE | 2017-10-21 03:30 | NUR ---
AMBULATED TO BR TO VOID. BACK TO BED AFTER VOIDING. SAFETY MAINTAINED.
[2017-10-21 04:00] VITALS: BP 135/77
--- NOTE | 2017-10-21 04:30 | NUR ---
WANTS TO OPEN THE TV. EXPLAINED THAT PATIENTS UNDER 5150 ARE NOT ALLOWED TO WATCH TV, IT MAY TRIGGER SUICIDAL THOUGHTS. COOPERATIVE. DID NOT COMMENT ON THIS, SEEMS TO UNDERSTAND EXPLANATION.
--- NOTE | 2017-10-21 05:56 | NUR ---
REFUSED BLOOD DRAW FOR AM LABS.
--- NOTE | 2017-10-21 06:00 | NUR ---
RESTING IN BED, QUIET. NEW SITTER NEAR BEDSIDE MONITORING PATIENT.
--- NOTE | 2017-10-21 06:57 | NUR ---
CONDITION REMAIN STABLE. SAFETY MAINTAINED DURING SHIFT. NO SUICIDAL IDEATION NOTED. WILL ENDORSED TO AM NURSE FOR CONTINUITY OF CARE.
--- NOTE | 2017-10-21 07:30 | NUR ---
RECEIVED REPORT FROM COLOR ROOM ATTENDANT NURSE. PATIENT IN STABLE CONDITION. PATIENT LYING IN BED SLEEPING. AROUSABLE BY VOICE. NO DISTRESS NOTED. RESPIRATIONS EVEN, UNLABORED, ON ROOM AIR. DENIES ANY PAIN AT THIS TIME. AAOX4, CALM, COOPERATIVE, SKIN COLOR APPROPRIATE TO ETHNICITY, WARM TO TOUCH. DENIES ANY THOUGHTS OF HARMING SELF OR OTHERS AT THIS TIME. HOWEVER, PATIENT BELIEVES THAT HE "SHOULD BY EUTHANIZATION HE DOESN'T DESERVE THE PAIN OF ." DENIES ANY HALLUCINATIONS. SKIN IS INTACT. IV SITE IS INTACT, PATENT, IVF INFUSING PER ORDERS. ABDOMEN SOFT, NON-TENDER, NON-DISTENDED. REVIEWED PLAN OF CARE WITH PATIENT. PATIENT VERBALIZED UNDERSTANDING. SAFETY MEASURES IN PLACE, 1:1 SITTER AT BEDSIDE. WILL CONTINUE TO MONITOR.
[2017-10-21 08:00] VITALS: BP 111/70
--- NOTE | 2017-10-21 09:46 | NUR ---
CM NOTE CLINICAL INFORMATION FAXED TO [facility] / FAX# [phone], C: [phone]
[2017-10-21] MEDS: DOCUSATE SODIUM 100 MG GELCAP PO SCH ×2 (09:54→20:54)
[2017-10-21] MEDS: risperiDONE 1 MG TAB PO SCH ×2 (09:55→20:55)
--- NOTE | 2017-10-21 09:57 | NUR ---
PATIENT LYING IN BED SLEEPING. NO DISTRESS NOTED. AROUSABLE BY VOICE. RESPIRATIONS EVEN, UNLABORED, ON ROOM AIR. MEDICATIONS DUE GIVEN. SAFETY MEASURES IN PLACE, CALL LIGHT WITHIN REACH. WILL CONTINUE TO MONITOR.
[2017-10-21] MEDS ORDERED: ESCITALOPRAM 20 MG TAB PO SCH (11:00)
[2017-10-21] MEDS: NACL 0.9% 1,000 ML IV SCH (12:20)
--- NOTE | 2017-10-21 13:12 | NUR ---
PATIENT HAS BEEN SCREENED AND CATEGORIZED LOW NUTRITION RISK. PATIENT WILL BE SEEN WITHIN 7 DAYS OF ADMISSION. 10/27/[address]
--- NOTE | 2017-10-21 15:25 | NUR ---
PATIENT LYING IN BED SLEEPING. AROUSABLE BY VOICE. RESPIRATIONS EVEN, UNLABORED ON ROOM AIR. NO DISTRESS NOTED. CONDITION UNCHANGED. WILL CONTINUE TO MONITOR.
[2017-10-21 16:00] VITALS: BP 125/70
[2017-10-21] MEDS: NICOTINE TRANSD SYS 21 MG/24 HR PATCH TD SCH (17:03)
--- NOTE | 2017-10-21 17:06 | NUR ---
PATIENT LYING IN BED COMFORTABLY, FEELS BORED. NO DISTRESS NOTED. DENIES ANY PAIN. CONDITION UNCHANGED. CONTINUES TO BELIEVE THAT HE SHOULD BE EUTHANIZED, BUT HAS NO PLANS TO CARRY IT OUT PER PATIENT REPORTS. OLD NICOTINE TRANSDERMAL PATCH REMOVED, AND NEW ONE PLACED PER ORDERS. SAFETY MEASURES IN PLACE, 1:1 SITTER IN ROOM. WILL CONTINUE TO MONITOR.
[2017-10-21] MEDS ORDERED: SODIUM PHOS / POTASSIUM PHOS 1 PKT PDR PO SCH (18:30)
--- NOTE | 2017-10-21 18:40 | NUR ---
PATIENT LYING IN BED SLEEPING. AROUSABLE BY VOICE. NO DISTRESS NOTED. CONDITION UNCHANGED. MEDICATION DUE GIVEN. SAFETY MEASURES IN PLACE, 1:1 SITTER AT BEDSIDE. WILL CONTINUE TO MONITOR.
--- NOTE | 2017-10-21 19:03 | NUR ---
GAVE REPORT TO CUSTOMS OFFICER NURSE FOR CONTINUITY OF CARE. PATIENT IN STABLE CONDITION.
--- NOTE | 2017-10-21 19:04 | NUR ---
RECD. RESTING IN BED, ASLEEP BUT EASILY WAKES UP WHEN NAME CALLED. RESPIRATION EVEN AND UNLABORED. IV OF NS AT 50 ML/HR INFUSING, RIGHT AC G20. PLAN OF CARE FOR THE SHIFT DISCUSSED. VERBALIZED UNDERSTANDING. DENIES PAIN 0/10. ASSUMED THE ROLE OF NURSE, 1:1 SITTER. WILL CONTINUE TO MONITOR PATIENT BEHAVIOR AND ENSURE SAFETY AT ALL TIMES.
[2017-10-21 19:57] VITALS: BP 100/59
--- NOTE | 2017-10-21 20:55 | NUR ---
DUE PO MEDICATIONS GIVEN. STATED STILL WITH THOUGHTS OF HARMING SELF. WENT BACK TO SLEEP AFTER TAKING MEDS.
--- NOTE | 2017-10-21 22:00 | NUR ---
Patient's Plan of Care was discussed and reviewed with MAINTENANCE MECHANIC TECHNICIAN: MICHAEL KERN
[2017-10-22] VITALS: BP 126/68
--- NOTE | 2017-10-22 00:59 | NUR ---
SLEEPING COMFORTABLY IN BED, SNORING.
--- NOTE | 2017-10-22 01:45 | NUR ---
WOKE UP, WENT BR TO VOID. BACK TO BED AFTER VOIDING.
--- NOTE | 2017-10-22 02:00 | NUR ---
SLEEPING COMFORTABLY. OCCASIONALLY TURN TO SIDES.
--- NOTE | 2017-10-22 05:55 | NUR ---
REFUSED AM BLOOD DRAW.
--- NOTE | 2017-10-22 06:00 | NUR ---
RESIDENT CAME AND SPOKE WITH PATIENT, STATED HE HAS STILL THOUGHTS OF HURTING HIMSELF.SAFETY MAINTAINED DURING SHIFT. NEW SITTER MONITORING PATIENT NEAR BEDSIDE.
[2017-10-22] MEDS: NACL 0.9% 1,000 ML IV SCH ×2 (06:56→08:20)
--- NOTE | 2017-10-22 07:15 | NUR ---
RECEIVED REPORT FROM CLINICAL INTERVIEWER NURSE. PATIENT IN STABLE CONDITION. PATIENT LYING IN BED SLEEPING. AROUSABLE BY VOICE. NO DISTRESS NOTED. RESPIRATIONS EVEN, UNLABORED, ON ROOM AIR. DENIES ANY PAIN AT THIS TIME. AAOX4, CALM, COOPERATIVE, SKIN COLOR APPROPRIATE TO ETHNICITY, WARM TO TOUCH. HAS THOUGHTS OF HARMING SELF HE BELIEVES THAT HE SHOULD . NO PLAN OF HARMING SELF AT THIS TIME HE DOES NOT KNOW HOW TO "DO IT WITHOUT SURVIVING." DENIES ANY HALLUCINATIONS. SKIN IS INTACT. IV SITE IS INTACT, PATENT, IVF INFUSING PER ORDERS. ABDOMEN SOFT, NON-TENDER, NON-DISTENDED. LUNGS CTA ON ALL LOBES. REVIEWED PLAN OF CARE WITH PATIENT. PATIENT VERBALIZED UNDERSTANDING. SAFETY MEASURES IN PLACE, 1:1 SITTER AT BEDSIDE. WILL CONTINUE TO MONITOR.
[2017-10-22 08:00] VITALS: BP 133/85
--- NOTE | 2017-10-22 08:11 | NUR ---
PATIENT REFUSED AM LABS. WILL CONTINUE TO MONITOR.
--- NOTE | 2017-10-22 09:30 | NUR ---
PATIENT LYING IN BED SLEEPING. AROUSABLE BY VOICE. NO DISTRESS NOTED. DENIES ANY PAIN. CONDITION UNCHANGED. CONTINUES TO FEEL THAT HE SHOULD . MEDICATIONS DUE GIVEN. SAFETY MEASURES IN PLACE, 1:1 SITTER AT BEDSIDE. WILL CONTINUE TO MONITOR.
[2017-10-22] MEDS: risperiDONE 1 MG TAB PO SCH ×2 (09:51→20:46)
[2017-10-22] MEDS: DOCUSATE SODIUM 100 MG GELCAP PO SCH ×2 (09:51→20:46)
[2017-10-22] MEDS: ESCITALOPRAM 20 MG TAB PO SCH (09:51)
[2017-10-22] MEDS: ATORVASTATIN 20 MG TAB PO SCH (09:51)
--- NOTE | 2017-10-22 10:16 | NUR ---
CALLED ART FROM [facility]. HE IS STILL LOOKING FOR A BED AT [facility]. NO BED YET.
--- NOTE | 2017-10-22 11:39 | NUR ---
PATIENT LYING IN BED COMFORTABLY. NO DISTRESS NOTED. CONDITION UNCHANGED. WILL CONTINUE TO MONITOR.
--- NOTE | 2017-10-22 14:22 | NUR ---
RECEIVED A CALL FROM [facility] FROM [facility]. NO BED YET.
--- NOTE | 2017-10-22 15:00 | NUR ---
1430 MET WITH PT AT BEDSIDE. PT STATED THAT HE HAS BEEN HOMELESS FOR 15 YEARS AND USUALLY HANGS OUT IN THE [place] ARE[place]. STATES THAT HE HAD BEEN GETTING SSI FOR YEARS AND THEN "AFTER I GOT ABOUT $98,000 FROM THE GOVERNMENT I FELT I HAD GOT ENOUGH SO I STOPPED IT". PT CONTINUES TO VERBALIZE THAT THE VOICES IN HIS HEAD WANT HIM TO . PROVIDED PT WITH RESOURCE LIST ON MENTAL HEALTH AND HOMELESSNESS. PT STATES HE HAS THREE SISTERS, ONE IN [facility], ONE IN [place] AND ONLY KNEW THE OTHER ONE WAS OUT OF STATE. SAID "THEY WON'T HAVE ANYTHING TO DO WITH ME".
[2017-10-22 16:00] VITALS: BP 107/57
[2017-10-22] MEDS: NICOTINE TRANSD SYS 21 MG/24 HR PATCH TD SCH (17:00)
--- NOTE | 2017-10-22 19:14 | NUR ---
GAVE REPORT TO [employer] OPERATOR NURSE. PATIENT IN STABLE CONDITION.
--- NOTE | 2017-10-22 19:15 | NUR ---
RECEIVED HANDOFF REPORT FROM AM RN. PATIENT A&OX4. PATIENT DENIES PAIN. PATIENT STATES "CURRENTLY I HAVE NO THOUGHTS OF HURTING MYSELF, AT THIS MOMENT". IV SITE PATENT AND INTACT. NO SIGNS OR SYMPTOMS OF ACUTE DISTRESS NOTED. SITTER AT BEDSIDE. SAFETY MEASURES ENSURED. WILL CONTINUE TO MONITOR.
[2017-10-22] MEDS: ZOLPIDEM 5 MG TAB PO PRN (20:50)
[2017-10-23] VITALS: BP 108/56
--- NOTE | 2017-10-23 00:14 | NUR ---
PATIENT RESTING IN BED. PATIENT DENIES THOUGHTS OF SUICIDAL IDEATION. NO SIGNS ORS SYMPTOMS OF ACUTE DISTRESS NOTED. SITTER AT BEDSIDE. WILL CONTINUE TO MONITOR.
[2017-10-23] MEDS: NACL 0.9% 1,000 ML IV SCH (04:20)
--- NOTE | 2017-10-23 04:23 | NUR ---
PATIENT RESTING IN BED. PATIENT DENIES SUICIDAL IDEATION. NO SIGNS OR SYMPTOMS OF ACUTE DISTRESS NOTED. SITTER AT BEDSIDE WILL CONTINUE TO MONITOR.
--- NOTE | 2017-10-23 06:12 | NUR ---
PATIENT RESTING IN BED. PATIENT DENIES CURRENT THOUGHTS OF HARMING HIMSELF. NO SIGNS OR SYMPTOMS OF ACUTE DISTRESS NOTED. SITTER AT BEDSIDE. WILL CONTINUE TO MONITOR.
--- NOTE | 2017-10-23 06:30 | NUR ---
PATIENT REFUSED AM LAB DRAW
--- NOTE | 2017-10-23 07:36 | NUR ---
ENDORSED PLAN OF CARE TO AM RN. PATIENT IN STABLE CONDITION. SAFETY MEASURES ENSURED. NO SIGNS OR SYMPTOMS OF ACUTE DISTRESS NOTED. SITTER AT BEDSIDE.
--- NOTE | 2017-10-23 07:37 | NUR ---
RECEIVED REPORT FROM NIGHT NURSE AT PT BEDSIDE. PATIENT SLEEPING, EASILY AWAKENS. FOLLOWS COMMANDS. ALERT AND ORIENTED. PATIENT STATES HAVING SUICIDAL IDEATION, BUT WHEN ASKED HOW PATIENT REPLIED NO ACTUAL PLAN BUT HAVING FEELINGS. PATIENT ORIENTED TO HOSPITAL ENVIRONMENT AND PLAN OF CARE, IN AGREEMENT. IV SITE PATENT AND INTACT. CALL LIGHT WITHIN REACH. SITTER AT BEDSIDE 1:1 OBSERVATION FOR SAFETY.
[2017-10-23 08:00] VITALS: BP 123/68
[2017-10-23] MEDS: ATORVASTATIN 20 MG TAB PO SCH (09:34)
[2017-10-23] MEDS: ESCITALOPRAM 20 MG TAB PO SCH (09:35)
[2017-10-23] MEDS: risperiDONE 1 MG TAB PO SCH ×2 (09:35→20:03)
[2017-10-23] MEDS: DOCUSATE SODIUM 100 MG GELCAP PO SCH ×2 (09:35→20:06)
--- NOTE | 2017-10-23 12:28 | NUR ---
PATIENT SLEEPING, NO S/S OF ACUTE DISTRESS NOTED. SITTER AT BEDSIDE.
--- NOTE | 2017-10-23 15:13 | NUR ---
FAXED LABS TO [facility]. FAX [phone] PER [place], NO BED YET. SHE WAS GIVEN THE PHONE NUMBER TO THE FLOOR TO CALL IF A BED BECOMES AVAILABLE.
[2017-10-23 16:00] VITALS: BP 128/73
--- NOTE | 2017-10-23 16:10 | NUR ---
PATIENT RESTING IN BED. NO S/S OF ACUTE DISTRESS NOTED.
[2017-10-23] MEDS: NICOTINE TRANSD SYS 21 MG/24 HR PATCH TD SCH (17:00)
--- NOTE | 2017-10-23 19:15 | NUR ---
ENDORSED PLAN OF CARE TO AGRICULTURAL ECONOMICS TEACHER FAITH AT PT BEDSIDE. NO S/S OF ACUTE DISTRESS. SITTER AT BEDSIDE.
--- NOTE | 2017-10-23 19:20 | NUR ---
PATIENT IS CURRENTLY RESTING IN BED AWAKE ALERT AT THIS TIME PATIENT IS CALM AND COOPERATIVE.RESTING IN BED HAS NO IV ACCESS SKIN IS CURRENTLY INTACT HAS MULTIPLE TATOOES NOTED TO HIS BODY.PATIENT AMBULATES WELL AND IS ABLE TO MAKE NEED KNOWN.SITTER 1:1 AT BEDSIDE PROVIDING AND MAKING SURE THERE CONTINUES TO HAVE A SAFE ENVIRONMENT AND ALSO AT THI TIME PATIENT VOICES NO SUICIDAL THOUGHTS OR IDEATIONS AND ISN'T ATTEMPTING TO HARM HIMSELF OR STAFF.PATIENT CONTINUE TO BE MONITORED NEEDS CONTINUE TO BE MET FRESH WATER GIVEN TO THE PATIENT.WILL CONTINUE TO OBSERVE.
[2017-10-23 20:00] VITALS: BP 127/73
--- NOTE | 2017-10-23 20:00 | NUR ---
Patient's Plan of Care was discussed and reviewed with CUSHION SPRING ASSEMBLER: FENG VAZQUEZ
[2017-10-23] MEDS: ZOLPIDEM 5 MG TAB PO PRN (20:04)
--- NOTE | 2017-10-23 22:30 | NUR ---
PATIENT IS SLEEPING IN BED AT THIS TIME. CONTINUES TO BE MONITORED.
--- NOTE | 2017-10-24 00:01 | NUR ---
PATIENT SLEEPING COMFORTABLY IN BED TURNS AND REPOSITIONS SELF IN BED OCCASIONALLY PATIENT IN NO DISTRESS WILL CONTINUE TO MONITOR. NO SUICIDAL IDEATION OR ATTEMPTS TO HARM HIMSELF NOTED. CONTINUES TO BE MONITORED.
--- NOTE | 2017-10-24 03:02 | NUR ---
PATIENT SLEEPING COMFORTABLY IN BED NEEDS MET WILL CONTINUE TO OBSERVE.
[2017-10-24 04:16] VITALS: BP 111/58
--- NOTE | 2017-10-24 05:44 | NUR ---
PATIENT IS CURRENTLY RESTING IN BED SLEEPING IN NO DISTRESS.WILL CONTINUE TO OBSERVE.
--- NOTE | 2017-10-24 07:23 | NUR ---
PATIENT STABLE REPORT ENDORSED TO NIKOLE BOB SHE WILL RESUME CARE OF THE PATIENT.SOPHIA APARICIO IS SITTER 1:1 AND IS OBSERVING THE PATIENT.
--- NOTE | 2017-10-24 07:24 | NUR ---
RECEIVED REPORT FROM THE PLANT CHANGER NURSE AT BEDSIDE FOR CONTINUITY OF CARE. PT AWAKE AND ORIENTED. INTRODUCED MYSELF AND UPDATED THE BOARD. PT SKIN INTACT. V/S WITHIN NORMAL RANGE. NO IV ACCESS. PT IS WITH A SITTER. NO COMPLAINTS AT THIS TIME. WILL CONTINUE TO MONITOR PT.
[2017-10-24 08:00] VITALS: BP 124/71
[2017-10-24] MEDS: ESCITALOPRAM 20 MG TAB PO SCH (08:54)
[2017-10-24] MEDS: ATORVASTATIN 20 MG TAB PO SCH (08:54)
[2017-10-24] MEDS: DOCUSATE SODIUM 100 MG GELCAP PO SCH ×2 (08:54→20:26)
[2017-10-24] MEDS: risperiDONE 1 MG TAB PO SCH ×2 (08:55→20:26)
--- NOTE | 2017-10-24 09:00 | NUR ---
ADMINISTERED MORNING MEDS. PT TOLERATED WELL. WILL CONTINUE TO MONITOR.
--- NOTE | 2017-10-24 12:35 | NUR ---
SITTING UP IN BED. EATING LUNCH. NO SIGNS OF DISTRESS. NO COMPLAINTS AT THIS TIME. WILL CONTINUE TO MONITOR PT.
--- NOTE | 2017-10-24 15:30 | NUR ---
PT JUST SLEEPING. NO SIGNS OF DISTRESS. SITTER AT BEDSIDE. WILL CONTINUE TO MONITOR PT.
[2017-10-24 16:00] VITALS: BP 114/69
[2017-10-24] MEDS: NICOTINE TRANSD SYS 21 MG/24 HR PATCH TD SCH ×2 (16:39→16:42)
--- NOTE | 2017-10-24 19:04 | NUR ---
ENDORSED PT TO THE TRANSFER KNITTER NURSE AT BEDSIDE FOR CONTINUITY OF CARE. PT IS STABLE.
--- NOTE | 2017-10-24 19:18 | NUR ---
ENDORSED PT TO THE CARBON FURNACE OPERATOR HELPER NURSE AT BEDSIDE FOR CONTINUITY OF CARE. PT IS STABLE.
--- NOTE | 2017-10-24 19:18 | NUR ---
RECD. RESTING IN BED, AWAKE, A/OX4. RESPIRATION EVEN AND UNLABORED. AMBULATING TO THE BR. STATED HE STILL HAS THOUGHT OF HARMING HIMSELF. NO IV LINE, STATED I DON'T NEED IT. PLAN OF CARE FOR THE SHIFT DISCUSSED. VERBALIZED UNDERSTANDING. DENIES PAIN 0/10. ASSUMED THE ROLE OF NURSE SITTER, WILL MONITOR AND ENSURE SAFETY THROUGHOUT SHIFT.
--- NOTE | 2017-10-24 20:00 | NUR ---
AMBULATED TO TO VOID, BACK TO BED AFTER VOIDING.
--- NOTE | 2017-10-24 20:00 | NUR ---
Patient's Plan of Care was discussed and reviewed with SIGNAL SYSTEM TESTING MAINTAINER: MICHAEL KERN
[2017-10-24] MEDS: ZOLPIDEM 5 MG TAB PO PRN (20:26)
--- NOTE | 2017-10-24 20:26 | NUR ---
DUE PO MEDICATIONS GIVEN. AMBIEN 5 MG. PO GIVEN REQUESTED.
--- NOTE | 2017-10-24 21:26 | NUR ---
SLEEPING COMFORTABLY IN BED.
[2017-10-25] VITALS: BP 126/70
--- NOTE | 2017-10-25 | NUR ---
STILL SLEEPING COMFORTABLY. VS STABLE.
--- NOTE | 2017-10-25 05:20 | NUR ---
WOKE UP AND SIT ON BED, WANTS ANOTHER SLEEPING PILL BUT EXPLAINED IT CAN BE GIVEN BEFORE 3 AM AND THE TIME IS ALREADY PAST, VERBALIZED UNDERSTANDING.
--- NOTE | 2017-10-25 06:00 | NUR ---
RESTING IN BED, AWAKE. REFUSED LAB BLOOD DRAW. ENDORSED TO ANN YOUNG FOR CONTINUITY OF CARE. NO SUICIDAL IDEATION NOTED DURING SHIFT.
--- NOTE | 2017-10-25 06:05 | NUR ---
ASSUMED CONTINUITY OF CARE. NO SIGNS AND SYMPTOMS OF ACUTE DISTRESS NOTICED. RESTING ON BED COMFORTABLY. NO IV ACCESS. REFUSED IV INSERTION. CALM, QUIET, AND COOPERATIVE. NO SUICIDAL THOUGHTS MANIFESTED. KEEP COMFORTABLE ON BED. PT. BACK TO SLEEP. KEEP FREE FROM INJURY. CLOSELY MONITORED 1:1.
--- NOTE | 2017-10-25 07:26 | NUR ---
Patient's Plan of Care was discussed and reviewed with REGISTERED NURSING PROFESSOR: HECTOR BOONE. RECEIVE PT IN BED AWAKE. ALERT ORIENTED X4.DENIES ANY PAIN OR DISCOMFORT AT THIS TIME. NO SUICIDAL IDEATION NOTED AT THIS TIME. SAFETY PRECAUTION IN PLACE. MAINTAINED ON PER MD ORDER. KEPT CLEAN, DRY AND COMFORTABLE.
--- NOTE | 2017-10-25 07:47 | NUR ---
DR. FAULKNER WENT INSIDE PT. ROOM AND SEEN PT.. PT. CALM, QUIET, AND COOPERATIVE. NO UNTOWARD BEHAVIOR SEEN.
[2017-10-25 08:00] VITALS: BP 126/73
[2017-10-25] MEDS: DOCUSATE SODIUM 100 MG GELCAP PO SCH ×2 (08:45→20:20)
[2017-10-25] MEDS: ATORVASTATIN 20 MG TAB PO SCH (08:45)
[2017-10-25] MEDS: ESCITALOPRAM 20 MG TAB PO SCH (08:46)
[2017-10-25] MEDS: risperiDONE 1 MG TAB PO SCH (08:46)
--- NOTE | 2017-10-25 11:04 | NUR ---
WENT TO BATHROOM. TOLERATED WELL. HAD STEADY GAIT AND BALANCE. NO C/O PAIN. NO SOB, NOTED. CONTINUE MONITORING 1:1.
[2017-10-25 12:00] VITALS: BP 104/72
--- NOTE | 2017-10-25 12:53 | NUR ---
CALLED [facility] AND SPOKE WITH MARTIN. NO BEDS YET. I GAVE HER THE PHONE NUMBER TO THE FLOOR IF A BED BECOMES AVAILABLE.
--- NOTE | 2017-10-25 14:00 | NUR ---
SLEEPING WELL IN COMFORTABLE POSITION. NO DIFFICULTY BREATHING NOTICED. KEEP FREE FROM INJURY. CONTINUE MONITORING 1:1.
[2017-10-25] MEDS: NICOTINE TRANSD SYS 21 MG/24 HR PATCH TD SCH (16:53)
--- NOTE | 2017-10-25 16:53 | NUR ---
EXPLAINED ABOUT MD ORDER OF HABITROL TRANSDERMAL SYSTEM 21 MG TD Q24 HOUR. VERBALIZED UNDERSTANDING BUT PT. REFUSED.
[2017-10-25] MEDS ORDERED: ESCI10TA PO (18:15)
[2017-10-25] MEDS ORDERED: RIS1 PO (18:18)
[2017-10-25] MEDS ORDERED: ATOR20TA40 PO (18:18)
[2017-10-25] MEDS ORDERED: NICO-532 TD (18:18)
[2017-10-25] MEDS ORDERED: ZOLP5TAB1 PO (18:18)
--- NOTE | 2017-10-25 18:23 | NUR ---
REPORT GIVEN TO VALERIE VAZ FOR CONTINUITY OF CARE. IN STABLE CONDITION.
--- NOTE | 2017-10-25 18:25 | NUR ---
RECEIVED PT FROM JESSICA. PT RESTING NO SIGNS OF PAIN NOTED. WITH 1:1 SITTER AT THE BEDSIDE.
--- NOTE | 2017-10-25 19:08 | NUR ---
DR. HASSAN AT THE BEDSIDE TO REEVALUATED PT. WILL ENDORSE TO NEXT SHIFT NURSE FOR CONTINUITY OF CARE.
--- NOTE | 2017-10-25 19:09 | NUR ---
PATIENT IS CURRENTLY BEING SEEN BY MD STANTON. PATIENT IS AWAKE ALERT ORIENTED AND COOPERATIVE ALLOWS ME TO CHECK HIS VITAL SIGNS PATIENT REMAINS CALM.WILL CONTINUE TO MONITOR.
[2017-10-25 20:00] VITALS: BP 132/72
--- NOTE | 2017-10-25 20:00 | NUR ---
Patient's Plan of Care was discussed and reviewed with ANN: GEORGE
[2017-10-25] MEDS: ZOLPIDEM 5 MG TAB PO PRN (20:20)
--- NOTE | 2017-10-25 20:20 | NUR ---
PATIENT IS REQUESTING TO HAVE HIS SLEEPING PILL SO HE CAN SLEEP TONIGHT AND THE REST OF HIS MEDS.I ADMINISTERED HIS MEDS TONIGHT WILL CONTINUE TO MONITOR.
[2017-10-25] MEDS ORDERED: risperiDONE 1 MG TAB PO SCH (21:00)
--- NOTE | 2017-10-25 23:20 | NUR ---
PATIENT SLEEPING COMFORTABLY IN BED AT THIS TIME NEEDS MET WILL CONTINUE TO MONITOR. PATIENT HASN'T VOICED ANY THOUGHTS TO HARM HIMSELF OR COMMIT SUICIDE.
--- NOTE | 2017-10-25 23:25 | NUR ---
I INFORMED MD RESIDENT JERNIGAN THAT MD STANTON PROGRESS NOTES SAY THAT PATIENT DOESN'T MET THE CRITERIA FOR 5150 HOLD AND ASKED RESIDENT JERNIGAN IF PATIENT SHOULD STILL HAVE A 1:1 SITTER.MD JERNIGAN SAID SHE WILL PUT IN A NEW ORDER.
[2017-10-26] VITALS: BP 130/70
--- NOTE | 2017-10-26 00:40 | NUR ---
PATIENT IS CURRENTLY RESTING IN BED SLEEPING WILL CONTINUE TO MONITOR CALL LIGHT WITHIN REACH.
--- NOTE | 2017-10-26 03:04 | NUR ---
PATIENT IS SLEEPING IN NO DISTRESS WILL CONTINUE TO MONITOR.CALL LIGHT WITHIN REACH.
--- NOTE | 2017-10-26 06:48 | NUR ---
PATIENT IS CURRENTLY STABLE RESTING IN BED NO SUICIDAL IDEATION DURING THE NIGHT PATIENT REMAINS CALM AND RELAXED. PATIENT VERY COOPERATIVE.
--- NOTE | 2017-10-26 07:44 | NUR ---
PATIENT IS CURRENTLY RESTING IN BED SLEEPING REPORT ENDORSED TO NIKOLE VIGIL SHE WILL RESUME CARE OF THE PATIENT.
[2017-10-26 08:00] VITALS: BP 118/77
[2017-10-26] MEDS ORDERED: ESCITALOPRAM 20 MG TAB PO SCH (09:00)
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
== END 2017-10-26 10:00 | disposition home or self-care (01) | DRG 52 ==
LOC: MED 11:26 → MTU 16:20
PROVIDERS: ADMIT Family Medicine Sports Medicine; ATTEND Family Medicine Sports Medicine
DX: G93.40 Encephalopathy, unspecified (principal); R45.851 Suicidal ideations; F30.9 Manic episode, unspecified; F25.1 Schizoaffective disorder, depressive type; E83.39 Other disorders of phosphorus metabolism; I10 Essential (primary) hypertension; F41.0 Panic disorder [episodic paroxysmal anxiety]; S46.811A Strain of other muscles, fascia and tendons at shoulder and upper arm level, right arm, initial encounter; E78.5 Hyperlipidemia, unspecified; E66.9 Obesity, unspecified; F17.210 Nicotine dependence, cigarettes, uncomplicated; F41.1 Generalized anxiety disorder; Z68.31 Body mass index [BMI] 31.0-31.9, adult; Z59.0 Homelessness
CPT/HCPCS: 36415; 71010; 73080; 80053; 80305; 81003; 82140; 82150; 83036; 83690; 83735; 83880; 84100; 84439; 84443; 84484; 85025; 85610; 85730; 87081; 93005; 99285; G0480; G0482; J2001; J7030; Q0092

== ENCOUNTER 2022-03-31 09:26 | Emergency (ER) | payer MEDICAID ==
[~2022-03-31] VITALS: Ht 175.3 cm; Wt 97.5 kg
[~2022-03-31 09:26] MED LIST changes: +ATOR20TA40 PO; +NICO-532 TD; +RIS1 PO; +ZOLP5TAB1 PO
[2022-03-31 09:36] VITALS: BP 175/82
--- NOTE | 2022-03-31 09:40 | NUR ---
51 y/o male bib self, homeless, pt states he feels depressed and would like to end his life by method of jumping in front of car. no specific plan at this time. pt is requesting to stay here to sleep and shower. pt states he has tried to hang him self, could not specify a time. denies nausea, vomiting, diarrhea. skin is pink/warm/dry. a&o x4 with even and steady gait, occasionally speaks to himself. lungs clear bl, heart rate even and regular. pt denies dysuria, hematuria, urinary frequency or retention. pt denies any fever, cp, sob, or cough at this time. pt states pain is 0/10 at this time. vss. patient positioned for comfort. hob elevated. bed down. ermd made aware of pt pmh: depression, dorsalgia, schizophrenia, nicotine dependence nka
--- NOTE | 2022-03-31 09:42 | NUR ---
PT AMB TO BED 6.
--- NOTE | 2022-03-31 10:05 | NUR ---
abdulaziz swabbed and specimens walked to lab, handed to kenisha
--- NOTE | 2022-03-31 10:30 | NUR ---
LAB AT BEDSIDE
[2022-03-31 10:48] LABS: BASOPHILS # (AUTO) 0.1 K/uL (0.00-0.22); BASOPHILS % (AUTO) 0.9 % (0.0-2.0); EOSINOPHILS # (AUTO) 0.1 K/uL (0-0.4); EOSINOPHILS % (AUTO) 1.4 % (0.0-4.0); HEMATOCRIT 40.9 % (36-52); HEMOGLOBIN 13.8 g/dL (12.0-18.0); LYMPHOCYTES # (AUTO) 2.2 K/uL (2.0-11.5); MEAN CORPUSCULAR HEMOGLOBIN 29 pg (27-31); MEAN CORPUSCULAR HGB CONC 34 g/dL (33-37); MONOCYTES # (AUTO) 0.3 K/uL (0.8-1.0); NEUTROPHILS # (AUTO) 4.3 K/uL (1.8-7.7); NEUTROPHILS % (AUTO) 61.7 % (42.2-75.2); PLATELET COUNT (AUTO) 237 K/uL (140-450); RED BLOOD CELL COUNT(AUTO) 4.75 MIL/uL (4.20-6.10); RED CELL DISTRIBUTION WIDTH 13.7 % (11.6-13.7)
--- NOTE | 2022-03-31 11:27 | NUR ---
pt states "I can do what ever I want and I am going to leave." security notified about pt leaving facility at this time. ermd made aware.
[2022-03-31 11:30] VITALS: BP 175/82
[2022-03-31 11:31] LABS: ALBUMIN 3.4 g/dL (3.4-5.0); ANION GAP 11.2 (8-16); ASPARTATE AMINOTRANSFERASE 35 U/L (15-37); CARBON DIOXIDE 28.4 mmol/L (21-32); CHLORIDE 106 mmol/L (98-107); CREATININE 1.2 mg/dL (0.6-1.3); GFR ARICAN-AMERICAN 82 mL/min (>90); GLUCOSE 132 mg/dL (74-106); POTASSIUM 3.6 mmol/L (3.5-5.1); SODIUM SERUM 142 mmol/L (136-145); TOTAL BILIRUBIN 0.3 mg/dL (0.0-1.0); UREA NITROGEN, BLOOD 14 mg/dL (7-18)
[2022-03-31 11:32] LABS: SALICYLATE < 2.8 mg/dL (2.8-20.0)
[2022-03-31 11:33] LABS: BARBITURATE, URINE NEGATIVE ng/ml (NEG <=200); BENZODIAZEPINE, URINE NEGATIVE ng/mL (NEG <=200); CANNABINOID, URINE POSITIVE ng/mL (NEG <=50); COCAINE, URINE NEGATIVE ng/mL (NEG <=300); OPIATE, URINE NEGATIVE ng/mL (NEG <=2000); PHENCYCLIDINE SCREEN,URINE NEGATIVE ng/mL (NEG <=25)
[2022-03-31 11:39] LABS: ACETAMINOPHEN < 0.5 ug/ml (10-30)
== END 2022-03-31 11:27 | disposition left against medical advice (07) ==
LOC: MED 09:26
DX: R45.851 Suicidal ideations (principal); Z20.822 Contact with and (suspected) exposure to COVID-19; F17.210 Nicotine dependence, cigarettes, uncomplicated; F12.90 Cannabis use, unspecified, uncomplicated; Z79.899 Other long term (current) drug therapy
CPT/HCPCS: 36415; 80053; 80305; 85025; 87426; 87635; 99283; C9803; G0480; G0482

== ENCOUNTER 2022-04-08 02:24 | Emergency (ER) | payer OTHER, MEDICAID ==
[~2022-04-08] VITALS: Ht 177.8 cm; Wt 93.4 kg
[2022-04-08 02:33] VITALS: BP 131/56
--- NOTE | 2022-04-08 02:41 | NUR ---
Patient ambulated to bed 5.
[2022-04-08 02:46] VITALS: BP 131/56
--- NOTE | 2022-04-08 03:17 | NUR ---
X-ray at bedside.
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
--- NOTE | 2022-04-08 03:35 | NUR ---
PATIENT GIVEN BLANKETS FOR COMFORT. BED LOW AND LOCKED, ONE SIDE RAIL UP FOR SAFETY. ALL NEEDS MET.
[2022-04-08] MEDS ORDERED: IBUP-2213 PO (03:42)
[2022-04-08] MEDS ORDERED: ACET-10509 PO (03:42)
--- NOTE | 2022-04-08 03:44 | NUR ---
Dr. Hamlin at bedside to exam patient.
--- NOTE | 2022-04-08 03:48 | NUR ---
SECURITY CALLED TO THE ER
--- NOTE | 2022-04-08 03:48 | NUR ---
PATIENT AGGITATED AND AGGRESSIVE. YELLING PROFANITIES. PATIENT EXITED FACILITY PROCEDED TO PUSH AND THROW COMPUTERS, UTRASOUND MACHINE, EKG, VS MACHINE. PATIENT PUSHED COMPUTER INTO MULTIPLE NURSES. ATTEMPTED TO THROW CONTAINERS AT STAFF MEMBERS.
--- NOTE | 2022-04-08 03:49 | NUR ---
KINSEY HAMLIN CALLED AT THIS TIME.
--- NOTE | 2022-04-08 04:16 | NUR ---
[place] [employer] came to ER for incident report, per [place] [employer] -Patient walked in at [place] [facility] by himself.
--- NOTE | 2022-04-08 04:18 | NUR ---
KINSEY HAMLIN SPEAKING WITH MD WEISS
--- NOTE | 2022-04-08 04:42 | NUR ---
The patient's care was reviewed and supervised by Sandra Yeh RN.
--- NOTE | 2022-04-08 04:57 | NUR ---
INCIDENT REPORT NUMBER [id number] PROVIDED BY OFFICER Bravo REDDING #[id number]
== END 2022-04-08 03:48 | disposition left against medical advice (07) ==
LOC: MED 02:24
DX: S40.021A Contusion of right upper arm, initial encounter (principal); R46.89 Other symptoms and signs involving appearance and behavior; F32.9 Major depressive disorder, single episode, unspecified; R45.851 Suicidal ideations; Z79.899 Other long term (current) drug therapy; V09.9XXA Pedestrian injured in unspecified transport accident, initial encounter; Y93.89 Activity, other specified; Y92.89 Other specified places as the place of occurrence of the external cause; Y99.8 Other external cause status
CPT/HCPCS: 71045; 73060; 99284; Q0092